=== PATIENT | male | born 1955 | race Caucasian/White ===

== ENCOUNTER → 2018-02-07 | Outpatient (CLI) | payer OTHER ==
[~2018-02-07] MED LIST: ACETAMINOPHEN325 M1 PO; AGGRENOX 25 MG1 EACH PO; AUGMENTIN 875-1 EACH PO; BISACODYL SUPP10 MG RE; CRESTOR5 MG PO; DULCOLAX5 MG PO; FISH OIL + D31 EACH PO; FISH OIL 1,0001 EAC8 PO; GLIPIZIDE ER5 MG PO; GLUCOPHAGE1000 MG PO; KEFLEX500 MG PO; LISINOPRIL40 MG PO; PLAVIX 75 MG TA75 M1 PO; TOPROL XL100 MG PO; VANCOMYCIN IV; [UNRECOGNIZED DRUG - OTHER] TOP
== END ==
LOC: M.WC 09:13
DX: E11.621 Type 2 diabetes mellitus with foot ulcer (principal); L97.511 Non-pressure chronic ulcer of other part of right foot limited to breakdown of skin; L89.892 Pressure ulcer of other site, stage 2; E11.622 Type 2 diabetes mellitus with other skin ulcer; L98.411 Non-pressure chronic ulcer of buttock limited to breakdown of skin; L89.313 Pressure ulcer of right buttock, stage 3; I25.10 Atherosclerotic heart disease of native coronary artery without angina pectoris; G82.20 Paraplegia, unspecified; Z86.73 Personal history of transient ischemic attack (TIA), and cerebral infarction without residual deficits; Z95.1 Presence of aortocoronary bypass graft

== ENCOUNTER → 2018-02-20 | Outpatient (CLI) | payer OTHER | LOC: M.WC 02:04 | DX: E11.622 Type 2 diabetes mellitus with other skin ulcer (principal); L89.313 Pressure ulcer of right buttock, stage 3; L98.411 Non-pressure chronic ulcer of buttock limited to breakdown of skin; I25.10 Atherosclerotic heart disease of native coronary artery without angina pectoris; G82.20 Paraplegia, unspecified; E11.51 Type 2 diabetes mellitus with diabetic peripheral angiopathy without gangrene; Z95.1 Presence of aortocoronary bypass graft; Z86.73 Personal history of transient ischemic attack (TIA), and cerebral infarction without residual deficits; Z89.512 Acquired absence of left leg below knee ==

== ENCOUNTER → 2018-03-07 | Outpatient (CLI) | payer OTHER | LOC: M.WC 01:50 | DX: E11.622 Type 2 diabetes mellitus with other skin ulcer (principal); L89.313 Pressure ulcer of right buttock, stage 3; L98.411 Non-pressure chronic ulcer of buttock limited to breakdown of skin; I25.10 Atherosclerotic heart disease of native coronary artery without angina pectoris; G82.20 Paraplegia, unspecified; Z86.73 Personal history of transient ischemic attack (TIA), and cerebral infarction without residual deficits; Z95.1 Presence of aortocoronary bypass graft ==

== ENCOUNTER → 2018-03-18 | Outpatient (CLI) | payer OTHER | LOC: M.WC 08:33 | DX: E11.622 Type 2 diabetes mellitus with other skin ulcer (principal); L89.313 Pressure ulcer of right buttock, stage 3; L98.411 Non-pressure chronic ulcer of buttock limited to breakdown of skin; I25.10 Atherosclerotic heart disease of native coronary artery without angina pectoris; F17.200 Nicotine dependence, unspecified, uncomplicated; Z86.73 Personal history of transient ischemic attack (TIA), and cerebral infarction without residual deficits; Z95.1 Presence of aortocoronary bypass graft ==

== ENCOUNTER 2018-03-24 12:39 | Inpatient (IN) | payer OTHER ==
[~2018-03-24] VITALS: Ht 175.3 cm; Wt 85.5 kg
[~2018-03-24 12:39] MED LIST changes: -AUGMENTIN 875-1 EACH PO; -PLAVIX 75 MG TA75 M1 PO
[2018-03-24 12:51] VITALS: BP 119/66
[2018-03-24] MEDS ORDERED: PLAVIX 75 MG TA75 M1 PO (13:09)
[2018-03-24 13:22] LABS: HEMATOCRIT 37.4 % (42.0-52.0); HEMOGLOBIN 12.2 gm/dL (14.0-18.0); MCH 29.2 pg (26.0-34.0); MCHC 32.7 g/dL (28.0-37.0); MCV 89.6 fL (80.0-100.0); MPV 7.7 fl. (7.2-11.1); NUCLEATED RBCS 0 /100WBC; PLATELET COUNT* 387 thou/uL (150-400); RBC 4.18 mil/uL (4.50-6.00); WBC 15.3 thou/uL (4.0-11.0)
[2018-03-24 13:35] LABS: CALCIUM 8.3 mg/dL (8.5-10.1); CREATININE 1.1 mg/dL (0.6-1.3); POTASSIUM 4.1 mmol/L (3.5-5.1)
[2018-03-24 13:39] LABS: ALBUMIN 2.8 g/dL (3.4-5.0); TOTAL BILIRUBIN 0.5 mg/dL (<0.1-1.0); TOTAL PROTEIN 7.3 g/dL (6.4-8.2)
[2018-03-24 13:45] LABS: ABSOLUTE EOSINOPHILS 0.2 thou/uL (0.0-0.7); ABSOLUTE LYMPHOCYTES 1.5 thou/uL (0.8-5.3); ABSOLUTE NEUTROPHILS 13.6 thou/uL (1.6-8.1); METAMYELOCYTES 1 %; PLATELET ESTIMATE ADEQUATE
[2018-03-24 17:00] VITALS: BP 93/48
[2018-03-24 17:20] VITALS: BP 89/45
[2018-03-24 20:05] VITALS: BP 59/32
[2018-03-24 20:06] VITALS: BP 79/40
[2018-03-24 23:47] LABS: URINE BILIRUBIN NEGATIVE (Negative); URINE BLOOD NEGATIVE (Negative); URINE CLARITY CLEAR; URINE COLOR YELLOW; URINE GLUCOSE-RANDOM NEGATIVE (Negative); URINE KETONES NEGATIVE (Negative); URINE NITRITE-REFLEX NEGATIVE (Negative); URINE PROTEIN NEGATIVE (Negative); URINE SPECIFIC GRAVITY <= 1.005 (1.005-1.030); URINE UROBILINOGEN 0.2 E.U./dl (0.2-1.0)
[2018-03-24 23:51] VITALS: BP 112/53
[2018-03-24 23:54] LABS: URINE LEUKOCYTES-REFLEX 2+ (Negative)
[2018-03-25 00:55] LABS: CASTS None Seen /LPF (None Seen); SQUAMOUS 4-10 Moderate /LPF (0-3)
[2018-03-25 00:56] LABS: BACTERIA-REFLEX 1-9 Few /HPF (None Seen); CRYSTALS None Seen /LPF (None Seen); URINE RBC 0-2 Rare /HPF (0-2); URINE WBC-REFLEX 6-15 Few /HPF (0-5)
[2018-03-25 04:00] VITALS: BP 107/38
[2018-03-25 04:21] LABS: ABSOLUTE BASOPHILS 0.1 thou/uL (0.0-0.2); ABSOLUTE EOSINOPHILS 0.1 thou/uL (0.0-0.7); ABSOLUTE LYMPHOCYTES 2.1 thou/uL (0.8-5.3); ABSOLUTE MONOCYTES 0.8 thou/uL (0.0-1.2); ABSOLUTE NEUTROPHILS 10.9 thou/uL (1.6-8.1); BASOPHILS 0.4 %; EOSINOPHILS 0.7 %; HEMATOCRIT 35.7 % (42.0-52.0); HEMOGLOBIN 11.6 gm/dL (14.0-18.0); LYMPHOCYTES 14.8 %; MCH 29.3 pg (26.0-34.0); MCHC 32.5 g/dL (28.0-37.0); MCV 90.1 fL (80.0-100.0); MONOCYTES 5.9 %; NUCLEATED RBCS 0 /100WBC; POLYS 78.2 %; RBC 3.96 mil/uL (4.50-6.00); WBC 13.9 thou/uL (4.0-11.0)
[2018-03-25 04:36] LABS: ALBUMIN 2.1 g/dL (3.4-5.0); CALCIUM 8.4 mg/dL (8.5-10.1); CREATININE 0.9 mg/dL (0.6-1.3); MAGNESIUM 1.5 mg/dL (1.8-2.4); TOTAL BILIRUBIN 0.6 mg/dL (<0.1-1.0); TOTAL PROTEIN 6.2 g/dL (6.4-8.2)
[2018-03-25 04:45] LABS: PLATELET COUNT* 293 thou/uL (150-400)
--- NOTE | 2018-03-25 05:31 | NUR ---
PT SLEPT ON AND OFF THIS SHIFT. ASSESSMENT DOCUMENTED. MEDS GIVEN PER E-OCT. IV PATENT. NEW IV STARTED. PT POSITIVE FOR SEPSIS, NOTIFIED, ORDERED RECIEVED. FLUIDS RUNNING, ABX INFUSED. NO REPORTS OF PAIN. PT REPOSITIONED SELF IN BED. PT STRAIGHT CATHS SELF. WILL CONTINUE WITH PLAN OF CARE.
[2018-03-25 08:10] VITALS: BP 126/64
--- NOTE | 2018-03-25 14:43 | NUR ---
WOUND CARE NOTE: CONSULT RECEIVED FOR INFECTED DECUB, R> BUTTOCK. PATIENT PRESENTS WITH AN UNSTAGEABLE PRESSURE ULCER TO THE RIGHT ISCHIAL TUBEROSITY. WOUND MEASURES 3.5X3X1.5. MOIST, TANG/YELLOW, ADHERENT SLOUGH TISSUE TO ENTIRETY OF WOUND BED. LUZ-WOUND WITH PARTIAL THICKNESS BREAKDOWN. NO DIRECTLY PALPABLE BONE PRESENT. PATIENT WAS SEEN WITH SURGEON. MEDIHONEY WAS APPLIED TO WOUND BED AFTER CLEANSING WITH 1/4 STRENGTH DAIKINS. THEN PACKED WITH AQUACEL AG AND COVERED WITH ABD. SECURED WITH TRANSPARENT DRAPE. PATIENT ALSO HAS PURPLE DISCOLORATION BETWEEN 4TH AND 5TH TOES. AREA MEASURES 0.5X0.5, NO OPENING. BELIEVE THIS IS A DEEP TISSUE INJURY FROM PRESSURE FROM 5TH TOE. COVERED WITH OPTIFOAM TO GIVE SOME CUSHION. SPOKE AT LENGTH WITH AND PATIENT REGARDING TOBACCO CESSATION, PROPER NUTRITION, OFFLOADING, BLOOD GLUCOSE CONTROL. PATIENT WILL NEED ENCOURAGEMENT TO COMPLY. PATIENT ADMITS TO NOT CHECKING HIS BLOOD SUGAR. RECOMMEND KELSEY MATTRESS TURN Q2 HOURS-KEEP OFF WOUND ENCOURAGE GOOD NUTRITION/HYDRATION TIGHT BLOOD GLUCOSE CONTROL EDUCATION ON TOBACCO CESSATION FOLLOW UP IN WOUND CENTER UPON DISCHARGE
[2018-03-25 16:00] VITALS: BP 127/49
--- NOTE | 2018-03-25 16:45 | NUR ---
SW met with pt and pt to complete initial assessment, introduce self, and SW role. Pt lives at home with pt and 15 year old son and 2 dogs. Pt works 3 jobs so pt is alone during the day but has been fairly independent with mobility and ADLs. Pt has history with [facility] and would prefer to use again if within network of pt insurance. Pt has an old wc (30 yrs old) with worn out cushion; pt in need of new wc, roho cushion, hospital bed, and low air loss mattress. SW to assist with ordering needed DME and arranging HH services for follow up when needed prior to pt dc.
--- NOTE | 2018-03-25 18:45 | NUR ---
PATIENT HAS BEEN A/O X 4 THIS SHIFT. HAS DENIED PAIN OR DISCOMFORT. PATIENT CONTINUES ON IV FLUIDS AND ANTIBIOTICS. PATIENT TRANSITIIONED TO LOW AIR LOSS MATTRESS. PATIENT TURNING IN BED AND HAS HAD PODUS BOOT IN PLACE TO RIGHT FOOT. SEEN BY SURGERY AND BEDSIDE DEBRIDEMENT DONE BY DR SARAVIA WITH WOUND CARE AT BEDSIDE. PATIENT STRAIGHT CATHING SELF. PATIENT WORKED WITH OT/PT THIS SHIFT. AT BEDSIDE MOST OF SHIFT. HOURLY ROUNDING COMPLETED. CALL LIGHT WITHIN REACH. WILL CONTINUE WITH PLAN OF CARE.
[2018-03-25 20:15] VITALS: BP 102/51
[2018-03-26 04:26] LABS: HEMATOCRIT 32.8 % (42.0-52.0); HEMOGLOBIN 10.7 gm/dL (14.0-18.0); MCH 29.9 pg (26.0-34.0); MCHC 32.7 g/dL (28.0-37.0); MCV 91.4 fL (80.0-100.0); MPV 8.1 fl. (7.2-11.1); RBC 3.59 mil/uL (4.50-6.00); RDW-CV 14.2 % (10.5-14.5); WBC 11.3 thou/uL (4.0-11.0)
[2018-03-26 04:42] LABS: ALBUMIN 1.9 g/dL (3.4-5.0); CREATININE 0.7 mg/dL (0.6-1.3); MAGNESIUM 1.6 mg/dL (1.8-2.4); POTASSIUM 3.8 mmol/L (3.5-5.1); TOTAL BILIRUBIN 0.3 mg/dL (<0.1-1.0); TOTAL PROTEIN 5.9 g/dL (6.4-8.2)
--- NOTE | 2018-03-26 05:52 | NUR ---
PT SLEPT ON AND OFF THIS SHIFT. ASSESSMENT DOCUMENTED. MEDS GIVEN PER E-OCT. IV PATENT, FLUIDS INFUSING. NO REPORTS OF PAIN. PT HAD FEVER, DR NOTIFIED, TYLENOL GIVEN PER E-OCT. PT STRAIGHT CATHED SELF THROUGH SHIFT. WILL CONTINUE WITH PLAN OF CARE.
[2018-03-26 07:55] VITALS: BP 141/58
--- NOTE | 2018-03-26 11:34 | CON ---
[address] [address] CONSULTATION Name: EMILIOBRUNAJENNIFER TAMEZ Room: [address] [place] .R.#: [id number] Admission: 03/24/18 Attend Phys: Mindy Painting MD Discharge: Date of : 59 Report #: [id number] THIS REPORT FOR: //name// CC: Elvis Painting DATE OF SERVICE: 03/25/2018 Infectious Disease Consultation ATTENDING PHYSICIAN: Dr. Painting. REASON FOR EVALUATION: Decubitus ulcer complicated by polymicrobial infection. HISTORY OF PRESENT ILLNESS: Chart reviewed, patient examined. This is a 62-year-old with longstanding paraplegia, has chronic sacral decubitus ulcer, has been followed by [facility]. Spouse confirmed increasing lethargy. He really has no feeling. He had some fevers, some anorexia, had a culture collected on the , had polymicrobial growth including Bacteroides, Klebsiella, Staphylococcus aureus, group F strep; however, due to worsening clinical condition and increased necrosis associated with the tissue in the wound, he was admitted, placed on broad spectrum therapy with vancomycin, piperacillin-tazobactam and underwent operative debridement. He has a wound VAC in place. At this point, he is not overtly toxic. Most recently, he has been afebrile. ALLERGIES: None known. MEDICATIONS: Include metformin, enoxaparin, glipizide, fish oil, famotidine, clopidogrel, lisinopril, metoprolol, vancomycin, and Zosyn. PAST MEDICAL HISTORY: Includes the above noted paraplegia, T11-T12, history of diabetes mellitus type 2 complicated by vasculopathy, a known aortocoronary bypass grafting due to coronary artery disease, hypertension, hyperlipidemia, left BKA, TIAs. SOCIAL HISTORY: Chewing tobacco. No ethanol or illicit drug use. FAMILY HISTORY: Noncontributory. REVIEW OF SYSTEMS: Denies significant pulmonary or gastrointestinal related complaints other than his baseline. He has had a little bit of diarrhea. PHYSICAL EXAMINATION: GENERAL: He is alert, cooperative, appropriate, appears somewhat undernourished, [place] [address] CONSULTATION Name: BRUNA JHAVERI Room: [address] IN [facility]#: [id number] Admission: 03/24/18 Attend Phys: Mindy Painting MD Discharge: Date of : 59 Report #: [id number] VITAL SIGNS: Temperature 98.1, pulse 80, respirations 16, blood pressure 126/64. SKIN: Warm, dry, no rashes. HEENT: Diminished dentition. NECK: Supple. LUNGS: Clear to auscultation. HEART: Regular. I do not appreciate murmur. ABDOMEN: Soft, nontender. There are no peritoneal signs. GENITOURINARY AND RECTAL: Deferred. DATA: Blood cultures sterile thus far. Prealbumin of 10.6. CBC: White count of 13.9. H and H 11.6 and 35.7, platelets of 293. Electrolytes: Sodium 137, potassium 4.0, chloride 103, bicarbonate 24, anion gap of 10, BUN and creatinine 12 and 0.9, glucose of 152. LFTs unremarkable. Albumin of 2.1, total protein of 6.2. Urinalysis: 6 to 15 white cells, 2+ leukocytes, 1 to 9 bacteria. TSH 0.515, which is normal range. Chest x-ray: Minor right basilar atelectasis or scarring. Lactic acid 2.3 on 03/24. It is down from initially 3.9. Cultures described above are susceptible Staph aureus and, although did have some resistance including quinolones, erythromycin. The Klebsiella was generally susceptible with exception of in vitro resistance to ampicillin. ASSESSMENT: Sacral decubitus ulcer. Agree with continuing antibiotic for polymicrobial infection. He has not utilizing a wound VAC. We will try to evaluate the wound tomorrow and noted surgery following. We will see how he responds. He has had aggressive debridements in the wound care center as well. Clearly, it will be a component of offloading inadequacy. We will discuss with surgery. It does appear on the imaging it extends to the tuberosity, although there is no overt evidence of signs to suggest bony involvement that would raise question of osteomyelitis at this point. We will see how he does clinically and optimize his nutritional status. <ELECTRONICALLY SIGNED> By: Jovanni Vazquez MD 03/26/18 1134 1217 0344Jovanni Vazquez MD /nt
[2018-03-26 11:53] VITALS: BP 144/57
--- NOTE | 2018-03-26 16:01 | NUR ---
IVONNE called [facility] and confirmed that they are in network with pt insurance. IVONNE called [facility] who accepts pt's insurance and discussed pt DME needs and SW will begin process of ordering equipment pt needs for home. SW was going to meet with pt and pt to update on status of DME and HH but pt was with OT at the time. SW to continue to follow to assist with safe dc planning.
[2018-03-26 16:19] VITALS: BP 137/61
--- NOTE | 2018-03-26 18:50 | NUR ---
PATIENT HAS BEEN A/O X 4 THIS SHIFT. HAS DENIED PAIN. IV FLUIDS SALINE LOCKED. IV ANTIBIOTICS CONTINUE. WOUND CHANGED BY SURGERY RESIDENT THIS AM AND CHANGED BY THIS RN WITH DR SANTANA IN THE ROOM. PATIENT TURNING SELF IN BED WITH REMINDERS. PODUS BOOT IN PLACE TO RIGHT FOOT. PATIENT SELF CATHING THROUGHOUT THE SHIFT. PATIENT WITH LOW GRADE TEMP THIS AFTERNOON, TYLENOL GIVEN AND TEMPERATURE BACK WNL. MAG BEING REPLACED THROUGH ELECTROLYTE PROTOCOL. IN THIS AFTERNOON. HOURLY ROUNDING COMPLETED. CALL LIGHT WITHIN REACH. WILL CONTINUE WITH PLAN OF CARE.
[2018-03-26 20:00] VITALS: BP 99/51
[2018-03-27 04:07] LABS: HEMATOCRIT 30.7 % (42.0-52.0); HEMOGLOBIN 10.2 gm/dL (14.0-18.0); MCH 29.7 pg (26.0-34.0); MCHC 33.1 g/dL (28.0-37.0); MCV 89.9 fL (80.0-100.0); MPV 8.1 fl. (7.2-11.1); RBC 3.42 mil/uL (4.50-6.00); RDW-CV 14.2 % (10.5-14.5); WBC 10.4 thou/uL (4.0-11.0)
[2018-03-27 04:27] LABS: CALCIUM 8.2 mg/dL (8.5-10.1); CREATININE 0.7 mg/dL (0.6-1.3); MAGNESIUM 1.6 mg/dL (1.8-2.4); POTASSIUM 3.9 mmol/L (3.5-5.1)
--- NOTE | 2018-03-27 05:06 | NUR ---
PT SLEPT SOUNDLY DURING THE NIGHT, TURNED [id number], IV ANTIBIOTICS GIVEN, DRESSING REMAINS IN PLACE, BOOT ON RIGHT FOOT, PLEASANT, STRAIGHT CATHED SELF, CALL LIGHT IN REACH, WILL CONTINUE TO MONITOR
[2018-03-27 08:05] VITALS: BP 146/59
--- NOTE | 2018-03-27 12:20 | NUR ---
SW faxed referral with order and progress note for hospital bed, low air loss mattress, wc and wc cushion to [facility]. SW to continue to follow to assist with safe dc planning.
[2018-03-27 16:06] VITALS: BP 147/62
--- NOTE | 2018-03-27 18:34 | NUR ---
PATIENT REMAINED ALERT AND ORIENTED X'S 4. VITAL SIGNS AND SPO2 STABLE. PAIN WELL CONTROLLED WITH PAIN MEDS. CHANGED DRESSING TODAY. WOUND PINK INSIDE WITH SLIGHT AMOUNTS OF TANG SLOUGH ON OUTSIDE OF WOUND. PATIENT STRAIGHT CATH'S HIMSELF. TOLERATED DIET, NO NAUSEA AND VOMITING. PATIENT TURNS SELF Q.2. COMPLETED HOURLY ROUNDING. CALL LIGHT WITHIN REACH. WILL CONTINUE TO MONITOR.
[2018-03-27 20:00] VITALS: BP 153/53
--- NOTE | 2018-03-28 04:38 | NUR ---
PT SLEPT AT INTERVALS DURING THE NIGHT, PLEASANT, PT REMINDED TO TURN AND ASSIST PT WITH TURNING WELL, IV ANTIBIOTIC INFUSED, PT STRAIT CATHED SELF, LRGE BM LAST NIGHT, DRSG CHANGED AT START OF SHIFT, CALL LIGHT IN REACH, WILL CONTINUE TO MONITOR
[2018-03-28 05:16] LABS: CALCIUM 8.1 mg/dL (8.5-10.1); CREATININE 0.8 mg/dL (0.6-1.3); MAGNESIUM 1.5 mg/dL (1.8-2.4)
[2018-03-28 09:00] VITALS: BP 146/68
[2018-03-28] MEDS ORDERED: AUGMENTIN 875-1 EACH PO (10:36)
[2018-03-28 10:38] VITALS: BP 146/68
[2018-03-28 12:27] VITALS: BP 146/68
--- NOTE | 2018-03-28 12:40 | NUR ---
IVONNE followed up with [facility] who received orders and progress notes needed to process DME orders and they are coordinating delivery with pt . Pt to dc home today. IVONNE faxed referral and orders and med list to [facility] services; pt/family preference.
--- NOTE | 2018-03-28 19:18 | NUR ---
PATIENT DRESSING CHANGED TO BUTTUCK THIS AM PER SURGERY, PHOTO TAKEN PER PROTOCOL. TURNED Q2. IV ABX INFUSED, CHANGED TO PO AND FIRST DOSE GIVEN THIS AFTERNOON. IV DC'D. WOUND CARE INSTRUCTIONS GIVEN AND WOUND CARE APPT MADE. VERBALIZES UNDERSTANDING OF PAPERWORK AND SCRIPT. PATIENT DISCHARGED VIA HOME WHEELCHAIR AND ALL BELONGINGS.
== END 2018-03-28 19:55 | disposition home health service (06) | DRG 853 ==
LOC: M.ERS 12:39 → M.3W 17:56
PROVIDERS: Internal Medicine; Physician Assistant Surgical; Surgery; ADMIT Internal Medicine
PROC: 0KBN0ZZ Excision of Right Hip Muscle, Open Approach (ICD-10-PCS; principal; 2018-03-25)
DX: A41.9 Sepsis, unspecified organism (principal); L89.314 Pressure ulcer of right buttock, stage 4; L03.317 Cellulitis of buttock; G82.20 Paraplegia, unspecified; I10 Essential (primary) hypertension; E78.5 Hyperlipidemia, unspecified; I25.10 Atherosclerotic heart disease of native coronary artery without angina pectoris; B96.20 Unspecified Escherichia coli [E. coli] as the cause of diseases classified elsewhere; B96.1 Klebsiella pneumoniae [K. pneumoniae] as the cause of diseases classified elsewhere; B95.5 Unspecified streptococcus as the cause of diseases classified elsewhere; E11.51 Type 2 diabetes mellitus with diabetic peripheral angiopathy without gangrene; L89.159 Pressure ulcer of sacral region, unspecified stage; F17.220 Nicotine dependence, chewing tobacco, uncomplicated; Z95.1 Presence of aortocoronary bypass graft; Z87.81 Personal history of (healed) traumatic fracture; Z89.612 Acquired absence of left leg above knee; Z86.73 Personal history of transient ischemic attack (TIA), and cerebral infarction without residual deficits; Z79.84 Long term (current) use of oral hypoglycemic drugs; Z79.02 Long term (current) use of antithrombotics/antiplatelets; Z79.899 Other long term (current) drug therapy

== ENCOUNTER → 2018-04-01 | Outpatient (CLI) | payer OTHER ==
[~2018-04-01] MED LIST changes: +AUGMENTIN 875-1 EACH PO; +PLAVIX 75 MG TA75 M1 PO
== END ==
LOC: M.WC 05:08
DX: E11.622 Type 2 diabetes mellitus with other skin ulcer (principal); L89.314 Pressure ulcer of right buttock, stage 4; L98.411 Non-pressure chronic ulcer of buttock limited to breakdown of skin; E11.51 Type 2 diabetes mellitus with diabetic peripheral angiopathy without gangrene; G82.20 Paraplegia, unspecified; I25.10 Atherosclerotic heart disease of native coronary artery without angina pectoris; Z86.73 Personal history of transient ischemic attack (TIA), and cerebral infarction without residual deficits; Z89.512 Acquired absence of left leg below knee

== ENCOUNTER → 2018-04-08 | Outpatient (CLI) | payer OTHER | LOC: M.WC 04:28 | DX: E11.622 Type 2 diabetes mellitus with other skin ulcer (principal); L89.314 Pressure ulcer of right buttock, stage 4; L98.411 Non-pressure chronic ulcer of buttock limited to breakdown of skin; I25.10 Atherosclerotic heart disease of native coronary artery without angina pectoris; G82.20 Paraplegia, unspecified; Z86.73 Personal history of transient ischemic attack (TIA), and cerebral infarction without residual deficits; Z72.0 Tobacco use ==

== ENCOUNTER → 2018-04-17 | Outpatient (CLI) | payer OTHER | LOC: M.WC 04:42 | DX: E11.622 Type 2 diabetes mellitus with other skin ulcer (principal); L98.415 Non-pressure chronic ulcer of buttock with muscle involvement without evidence of necrosis; L89.314 Pressure ulcer of right buttock, stage 4; E11.51 Type 2 diabetes mellitus with diabetic peripheral angiopathy without gangrene; G82.20 Paraplegia, unspecified; I25.10 Atherosclerotic heart disease of native coronary artery without angina pectoris; F17.290 Nicotine dependence, other tobacco product, uncomplicated; Z86.73 Personal history of transient ischemic attack (TIA), and cerebral infarction without residual deficits; Z89.512 Acquired absence of left leg below knee ==

== ENCOUNTER → 2018-04-24 | Outpatient (CLI) | payer OTHER ==
[2018-04-25 02:11] LABS: GLYCOHEMOGLOBIN (HGB A1C) 8.7 % (4.8-5.6)
--- NOTE | 2018-05-02 15:07 | PATH ---
[address] [address] PATHOLOGY RPT PROCEDURE Name: BRUNA JHAVERI Room: [facility] Rosales#: [id number] Admission: 04/24/18 Date of : 59 Discharge: Report #: [id number] Path Case #: [id number] [facility] Accession Number: [id number] . 01 Material submitted: . WOUND RIGHT BUTTOCK . 01 Clinical history: . Non-healing wound . 02 Diagnosis: Right buttock wound: - Nodular fat necrosis with calcification. (MENDEZ:job; 04/28/2018) QMS/04/28/2018 . 02 Electronically signed: . Sukhdev Hickman MD, Pathologist NPI- [id number] . 01 Gross description: . The specimen is received in formalin, labeled "Sam Elizabeth buttock wound". Received is a segment of pale andujar bone measuring 0.7 x 0.4 x 0.2 cm in greatest dimensions. The specimen is submitted entirely in cassette A1, following decalcification. (CAA; 04/25/2018) QAC/QAC . 02 Pathologist provided ICD-10: S31.819A . 02 CPT . 535937, 487227 Specimen Comment: A courtesy copy of this report has been sent to Specimen Comment: [phone], . Specimen Comment: Report sent to and Specimen Comment: A duplicate report has been generated due to demographic updates. Performed at: [address] [facility], [place], [place] [id number] MD Matt Concepcion MD Phone: [phone] Performed at: 02 [facility] [address], [place], [place] [id number] MD Sukhdev Hickman MD Phone: [phone]
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
== END ==
LOC: M.WC 03:52
PROVIDERS: Family Medicine
DX: E11.622 Type 2 diabetes mellitus with other skin ulcer (principal); L98.415 Non-pressure chronic ulcer of buttock with muscle involvement without evidence of necrosis; L89.314 Pressure ulcer of right buttock, stage 4; E11.51 Type 2 diabetes mellitus with diabetic peripheral angiopathy without gangrene; G82.20 Paraplegia, unspecified; I25.10 Atherosclerotic heart disease of native coronary artery without angina pectoris; Z89.512 Acquired absence of left leg below knee; Z86.73 Personal history of transient ischemic attack (TIA), and cerebral infarction without residual deficits

== ENCOUNTER → 2018-05-02 | Outpatient (CLI) | payer OTHER ==
--- NOTE | 2018-05-07 12:31 | CON ---
[address] [address] CONSULTATION Name: BRUNA JHAVERI Room: [facility] YarielOsmany.#: [id number] Admission: 05/02/18 Attend Phys: Matt Menon, Discharge: Date of : 59 Report #: [id number] THIS REPORT FOR: //name// CC: Elvis Menon DATE OF SERVICE: 05/02/2018 INFECTIOUS DISEASE CONSULTATION: ATTENDING PHYSICIAN: Dr. Matt Menon. REASON FOR EVALUATION: Chronic right ischial ulcer, post-hospitalization strokes, returns to the [facility] for ongoing treatment, had been hospitalized with infected decubitus ulcer. This was treated with the combination IV and then oral therapy, most recently Augmentin in addition to metronidazole and generally had been having adverse drug effects from the Flagyl including GI related anorexia, some nausea as well. It is not clear if he had any fevers. On evaluation by Dr. Menon, the wound does have a moderate area of slough that extends several centimeters, although there is no exposed bone. There is no particular odor, no purulence. It was instructed that he had been seen by Plastic Surgery and he is tentatively scheduled to undergo flap closure latter part of May. ASSESSMENT: Chronic decubitus ulcer. We will discontinue the antibiotics at this point; although, we will give him a prescription. He is to restart it if he suspects infection, needs to call. I will make arrangements to be seen. At this point, we will see him regularly 2 more weeks, optimize his nutritional status, which I think should improve with discontinuation of the antibiotics. <ELECTRONICALLY SIGNED> By: Jovanni Vazquez MD 05/07/18 1231 1423 0140Jomekhi Vazquez MD /nt
== END ==
LOC: M.WC 05:35
DX: E11.622 Type 2 diabetes mellitus with other skin ulcer (principal); L98.415 Non-pressure chronic ulcer of buttock with muscle involvement without evidence of necrosis; L89.314 Pressure ulcer of right buttock, stage 4; E11.51 Type 2 diabetes mellitus with diabetic peripheral angiopathy without gangrene; E11.65 Type 2 diabetes mellitus with hyperglycemia; G82.20 Paraplegia, unspecified; I25.10 Atherosclerotic heart disease of native coronary artery without angina pectoris; Z86.73 Personal history of transient ischemic attack (TIA), and cerebral infarction without residual deficits; Z89.512 Acquired absence of left leg below knee

== ENCOUNTER → 2018-05-09 | Outpatient (CLI) | payer OTHER | LOC: M.WC 04:57 | DX: E11.622 Type 2 diabetes mellitus with other skin ulcer (principal); L89.314 Pressure ulcer of right buttock, stage 4; L98.415 Non-pressure chronic ulcer of buttock with muscle involvement without evidence of necrosis; E11.51 Type 2 diabetes mellitus with diabetic peripheral angiopathy without gangrene; E11.65 Type 2 diabetes mellitus with hyperglycemia; I25.10 Atherosclerotic heart disease of native coronary artery without angina pectoris; G82.20 Paraplegia, unspecified; F17.290 Nicotine dependence, other tobacco product, uncomplicated; Z89.512 Acquired absence of left leg below knee; Z86.73 Personal history of transient ischemic attack (TIA), and cerebral infarction without residual deficits ==

== ENCOUNTER → 2018-05-16 | Outpatient (CLI) | payer OTHER ==
--- NOTE | 2018-05-17 09:23 | CON ---
[address] [address] CONSULTATION Name: BRUNA JHAVERI Room: [facility] KAYLEIGH Caba#: [id number] Admission: 05/16/18 Attend Phys: Matt Menon, Discharge: Date of : 59 Report #: [id number] THIS REPORT FOR: //name// CC: Elvis Menon DATE OF SERVICE: 05/16/2018 Infectious Disease Consultation REASON FOR EVALUATION: Followup gluteal chronic ulcer complicated by infection. HISTORY OF PRESENT ILLNESS: Chart reviewed, patient examined. The patient is a patient who has been following him intermittently, was last seen roughly 2-3 weeks ago. At that time, it was felt he was stable. Over the course of the next several days, had increasing pain associated with the site per report more inflamed. There was no odor to it. He was cultured and he had confirmed to have polymicrobial isolation of MRSA, group B strep, as well as Bacteroides. He had been empirically placed on trimethoprim and sulfamethoxazole. He is not chronically ill. Denies any toxicity. He has had no fevers. He apparently has lost some weight since his last visit; however. The wound itself appears to be fairly clean. ASSESSMENT AND PLAN: Wound infection. We will add Augmentin to his therapy with the trimethoprim and sulfamethoxazole to cover the isolates at this point. Continue wound VAC as prescribed. We will see him back in [address] Menon. Thank you for allowing to participate in the care of the patient. <ELECTRONICALLY SIGNED> By: Jovanni Vazquez MD 05/17/18 0923 1435 0250Josedima Vazquez MD /nt
== END ==
LOC: M.WC 04:55
DX: E11.622 Type 2 diabetes mellitus with other skin ulcer (principal); L98.415 Non-pressure chronic ulcer of buttock with muscle involvement without evidence of necrosis; L89.314 Pressure ulcer of right buttock, stage 4; E11.51 Type 2 diabetes mellitus with diabetic peripheral angiopathy without gangrene; G82.20 Paraplegia, unspecified; I25.10 Atherosclerotic heart disease of native coronary artery without angina pectoris; F17.290 Nicotine dependence, other tobacco product, uncomplicated; Z89.512 Acquired absence of left leg below knee; Z86.73 Personal history of transient ischemic attack (TIA), and cerebral infarction without residual deficits; Z95.1 Presence of aortocoronary bypass graft

== ENCOUNTER → 2018-05-30 | Outpatient (CLI) | payer OTHER ==
--- NOTE | 2018-06-02 07:40 | CON ---
[address] [address] CONSULTATION Name: BRUNA JHAVERI Room: [facility].#: [id number] Admission: 05/30/18 Attend Phys: Yariel Maya Discharge: Date of : 59 Report #: [id number] THIS REPORT FOR: //name// CC: Elvis Menon DATE OF SERVICE: 05/30/2018 ATTENDING PHYSICIAN: Dr. Menon. REASON FOR EVALUATION: Chronic ulceration involving the right buttock, complicated by deep infection and polymicrobial growth. Previous culture including MRSA strep and anaerobes. Generally, he has been doing fairly well. He is utilizing a wound VAC at this point. Denies any systemic illness. On evaluation, the wound appears to be fairly well granulated, still has significant depth to it as well as tunneling. It is notable he is scheduled to undergo flap closure procedure on 06/10. Chronic right buttock wound. At this point, I think it is reasonable to extend the antibiotics, additional 10 days up to the time of surgery. Continue wound care as per Dr. Menon. The wound VAC optimized his nutritional status. He has been doing well, staying off his wound in terms of offloading. We will follow him in 1 week. At that point, we may repeat the culture for supposed preop evaluation. <ELECTRONICALLY SIGNED> By: Jovanni Vazquez MD 06/02/18 0740 0914 1303Jovanni Vazquez MD /brigida
== END ==
LOC: M.WC 04:58
DX: E11.622 Type 2 diabetes mellitus with other skin ulcer (principal); L89.314 Pressure ulcer of right buttock, stage 4; L98.415 Non-pressure chronic ulcer of buttock with muscle involvement without evidence of necrosis; E11.51 Type 2 diabetes mellitus with diabetic peripheral angiopathy without gangrene; I25.10 Atherosclerotic heart disease of native coronary artery without angina pectoris; G82.20 Paraplegia, unspecified; Z95.5 Presence of coronary angioplasty implant and graft; Z89.512 Acquired absence of left leg below knee; Z86.73 Personal history of transient ischemic attack (TIA), and cerebral infarction without residual deficits

== ENCOUNTER → 2018-06-06 | Outpatient (CLI) | payer OTHER ==
--- NOTE | 2018-06-09 08:00 | CON ---
[address] [address] CONSULTATION Name: BRUNA JHAVERI [id number] Admission: 06/06/18 Attend Phys: Matt Menon, Discharge: Date of : 59 Report #: [id number] THIS REPORT FOR: //name// CC: Elvis Menon DATE OF SERVICE: 06/06/2018 ATTENDING PHYSICIAN: Matt Menon DO REASON FOR EVALUATION: Followup right buttock chronic ulceration with deep seated infection, although believe the absence of that osteomyelitis involving the ischium. HISTORY OF PRESENT ILLNESS: Chart reviewed, patient examined. The patient returns in followup. He was seen in the wound care center on a regular basis. Post-hospitalization, he has got an ongoing issue with a chronic wound of right buttock. This is pressure related. He is clinically stable. Denies any systemic illness. No change overall in the appearance of the wound. PHYSICAL EXAMINATION: There is no evidence of bone exposed via probing. ASSESSMENT AND PLAN: Chronic buttock wound. We will continue therapy. Based on recent cultures, he is on Bactrim and Augmentin. He is scheduled to go flap closure procedure on 06/10. He will take that regimen up until the time of surgery. We will be available as needed and may well be in a different hospital system. <ELECTRONICALLY SIGNED> By: Jovanni Vazquez MD 06/09/18 0800 1638 0353Jovanni Vazquez MD /brigida
== END ==
LOC: M.WC 05:27
DX: E11.622 Type 2 diabetes mellitus with other skin ulcer (principal); L89.314 Pressure ulcer of right buttock, stage 4; L98.411 Non-pressure chronic ulcer of buttock limited to breakdown of skin; I25.10 Atherosclerotic heart disease of native coronary artery without angina pectoris; G82.20 Paraplegia, unspecified; F17.200 Nicotine dependence, unspecified, uncomplicated; Z86.73 Personal history of transient ischemic attack (TIA), and cerebral infarction without residual deficits

== ENCOUNTER → 2018-07-10 | Outpatient (CLI) | payer OTHER | LOC: M.WC 03:42 | DX: T81.89XD Other complications of procedures, not elsewhere classified, subsequent encounter (principal); E11.622 Type 2 diabetes mellitus with other skin ulcer; L89.314 Pressure ulcer of right buttock, stage 4; L98.418 Non-pressure chronic ulcer of buttock with other specified severity; G82.20 Paraplegia, unspecified; I25.10 Atherosclerotic heart disease of native coronary artery without angina pectoris; Z89.512 Acquired absence of left leg below knee; Z72.0 Tobacco use; Z86.73 Personal history of transient ischemic attack (TIA), and cerebral infarction without residual deficits; Z95.5 Presence of coronary angioplasty implant and graft; Y92.89 Other specified places as the place of occurrence of the external cause; Y83.8 Other surgical procedures as the cause of abnormal reaction of the patient, or of later complication, without mention of misadventure at the time of the procedure ==

== ENCOUNTER → 2019-06-05 | Day surgery (SDC) | payer OTHER ==
[~2019-06-05] MED LIST changes: +BACTRIM DS TAB1 EACH PO; +GLIPIZIDE 10 MG10 MG PO; +HIGH POTENCY I134 MG PO; +LEVEMIR100 UNIT/2 SUBQ; +MULTIVITAMINS PO; +PEPCID40 MG PO; +PROTONIX40 M1 PO; +TOPROL XL25 MG PO; +VITAMINC500 PO; +ZINC10 MG
[2019-06-05 10:04] LABS: HEMATOCRIT 33.5 % (42.0-52.0); HEMOGLOBIN 10.9 gm/dL (14.0-18.0); MCH 25.3 pg (26.0-34.0); MCHC 32.4 g/dL (28.0-37.0); MCV 78.2 fL (80.0-100.0); MPV 6.8 fl. (7.2-11.1); RBC 4.29 mil/uL (4.50-6.00); RDW-CV 18.1 % (10.5-14.5); WBC 12.9 thou/uL (4.0-11.0)
[2019-06-05 10:16] LABS: CALCIUM 9.7 mg/dL (8.5-10.1); CREATININE 0.7 mg/dL (0.6-1.3); POTASSIUM 3.9 mmol/L (3.5-5.1)
[2019-06-05 10:23] LABS: ALBUMIN 2.6 g/dL (3.4-5.0); TOTAL BILIRUBIN 0.1 mg/dL (<0.1-1.0); TOTAL PROTEIN 7.3 g/dL (6.4-8.2)
--- NOTE | 2019-06-05 18:19 | EKG ---
[place] [address] ELECTROCARDIOGRAM REPORT Name: BRUNA JHAVERI Room: [facility]#: [id number] Admission: 06/05/19 Attend Phys: Tomi Rowe DO Discharge: Date of : 59 Report #: [id number] THIS REPORT FOR: //name// [facility] Test Date: 2019-06-05 Test Time: 09:51:28 Pat Name: BRUNA JHAVERI Department: Room: Gender: M Cellar Pumper: : 1955 Requested By: Tomi Rowe Order Number: [id number] Sherly MD: Bayron Deal Measurements Intervals [place] Rate: 78 P: 51 UT: 159 QRS: 33 QRSD: 98 T: 47 QT: 376 QTc: 429 Interpretive Statements Sinus rhythm Low voltage, precordial leads Compared to ECG 12/13/2012 18:37:02 Low QRS voltage now present Electronically Signed On 06-05-2019 18:18:59 CDT by Bayron Deal [email or web address] <ELECTRONICALLY SIGNED> By: Bayron Deal MD, [facility] 06/05/19 1818 0 0 Bayron Deal MD, FACC /EPI
== END | disposition home or self-care (01) ==
LOC: M.SUR 05-28 11:27
PROVIDERS: Internal Medicine Gastroenterology
DX: K21.0 Gastro-esophageal reflux disease with esophagitis (principal); K44.9 Diaphragmatic hernia without obstruction or gangrene; I10 Essential (primary) hypertension; E11.9 Type 2 diabetes mellitus without complications; F17.220 Nicotine dependence, chewing tobacco, uncomplicated; Z86.73 Personal history of transient ischemic attack (TIA), and cerebral infarction without residual deficits; Z98.890 Other specified postprocedural states; Z95.1 Presence of aortocoronary bypass graft; Z88.8 Allergy status to other drugs, medicaments and biological substances; Z79.899 Other long term (current) drug therapy